=== PATIENT | female | born 1995 | race Caucasian/White ===

== ENCOUNTER 2017-05-12 20:36 | Emergency (ER) | payer SELFPAY ==
[~2017-05-12] VITALS: Ht 162.6 cm; Wt 88.5 kg
[~2017-05-12 20:36] MED LIST: BUPR300T43 PO; CEPH500C PO; DICY10CA26 PO; DICY10CA59 PO; DICY20TA57 PO; DIPH25TA82 PO; DIPH50CA PO; HYDR-1231 PO; HYDR-700 PO; HYDR50TA76 PO; MONONESSA PO; OMEG-12 PO; ONDA-42 SL; PRM25T PO; RANI150C11 PO; RANI75TA30 PO; RIVA15TA PO; RIVA20TA2 PO; RNT150T PO; TRAM50TA2 PO
--- OUTSIDE RECORDS SUMMARY | 2017-05-12 20:43 | XMS REPORT ---
Author Author DINO [facility] eClinicalWorks Address Unknown Phone Unavailable Care Team Providers Care Rubber Stamps And Dies Supervisor Name Role Phone [facility] CP Unavailable Allergies No Known Allergies Problems Problem Type Condition Code Onset Dates Condition Status Assessment Mood disorder F39 Active Medications Medication Code System Code Instructions Start Date End Date Status Dosage Latuda [facility] [address]-59 40 MG Orally Once a day 1 tablet with food Xanax [facility] [address]-41 0.5 MG Orally Twice a day 1 tablet Procedures Procedure Coding System Code Date Psychotherapy, patient &/family, 30 minutes, established patient CPT-4 40685 Jul 02, 2015 Results No Known Results Summary Purpose eClinicalWorks Submission
--- OUTSIDE RECORDS SUMMARY | 2017-05-12 20:43 | XMS REPORT ---
Author Author AFSANEH LOW Organization eClinicalWorks Address Unknown Phone Unavailable Care Team Providers Care Chip Bin Conveyor Tender Name Role Phone AFSANEH LOW CP Unavailable Allergies, Adverse Reactions, Alerts Substance Reaction Event Type Oral Contraceptives Hx of DVT and PE Non Drug Allergy Problems Problem Type Condition ICD-9 Code Onset Dates Condition Status Assessment Unspecified episodic mood disorder 296.90 Active Medications Medication Code System Code Instructions Start Date End Date Status Dosage Fish Oil [facility] [address]-03 1000 MG Orally Once a day 1 capsule Benadryl [facility] [address]-48 25 mg January 31, 2014 take 1 capsule (25 mg) by oral route 3 times per day PRN ProAir HFA [facility] [address]-15 90 mcg/actuation Jul 31, 2014 2 puffs by Inhalation route 4 times per day PRN Xanax [facility] [address]-96 0.5 MG Orally Twice a day May 28, 2015 1 tablet Naproxen [facility] [address]-32 500 MG Orally every 12 hrs 1 tablet as needed Latuda [facility] [address]-48 20 MG Orally Once a day May 28, 2015 1 tablet with food Procedures Procedure Coding System Code Date Office Visit, Est Pt., Level 5 CPT-4 58762 May 28, 2015 Vital Signs Date/Time: May 28, 2015 Temperature 98.0 F BMIPercentile 94.65 % Weight 185.5 lbs Height 64.8 in BMI 31.06 Index Blood Pressure Diastolic 75 mmHg Blood Pressure Systolic 110 mmHg Cardiac Monitoring Heart Rate 78 bpm Wt Percentile 95.6 % Ht Percentile 57.85 % Results No Known Results Summary Purpose eClinicalWorks Submission
--- OUTSIDE RECORDS SUMMARY | 2017-05-12 20:43 | XMS REPORT ---
Author Author ARMIN PEREZ Organization eClinicalWorks Address Unknown Phone Unavailable Care Team Providers Care Wireless Sales Consultant Name Role Phone ARMIN PEREZ CP Unavailable Allergies, Adverse Reactions, Alerts Substance Reaction Event Type Oral Contraceptives Hx of DVT and PE Non Drug Allergy Problems Problem Type Condition Code Onset Dates Condition Status Assessment Major depressive disorder, single episode, unspecified F32.9 Active Assessment Anxiety disorder, unspecified F41.9 Active Assessment Bipolar II disorder F31.81 Active Medications Medication Code System Code Instructions Start Date End Date Status Dosage Xanax [facility] [address]-30 0.5 MG Orally Twice a day 1 tablet Latuda [facility] [address]-81 40 MG Orally Once a day 1 tablet with food Procedures Procedure Coding System Code Date Medication Management CPT-4 32669 Aug 18, 2015 Vital Signs Date/Time: Aug 18, 2015 Cardiac Monitoring Heart Rate 80 bpm Weight 197.7 lbs Height 64.8 in Wt Percentile 97.16 % BMI 33.10 Index Blood Pressure Diastolic 90 mmHg Blood Pressure Systolic 110 mmHg BMIPercentile 96.09 % Results No Known Results Summary Purpose eClinicalWorks Submission
--- OUTSIDE RECORDS SUMMARY | 2017-05-12 20:43 | XMS REPORT ---
Author GAEL Ascencio Organization eClinicalWorks Address Unknown Phone Unavailable Care Team Providers Care Fishing Manager Name Role Phone GAEL OG CP Unavailable Allergies, Adverse Reactions, Alerts Substance Reaction Event Type Oral Contraceptives Hx of DVT and PE Non Drug Allergy Problems Problem Type Condition Code Onset Dates Condition Status Problem Anxiety F41.9 Active Problem History of hypoglycemia Z86.39 Active Problem Bipolar disorder, unspecified F31.9 Active Assessment Acute non-recurrent pansinusitis J01.40 Active Assessment Acute middle ear effusion, bilateral H65.193 Active Medications Medication Code System Code Instructions Start Date End Date Status Dosage Augmentin [facility] [address]-97 875-125 MG Orally every 12 hrs Jul 15, 2016 Jul 25, 2016 1 tablet PredniSONE [facility] [address]-19 20 MG Orally Once a day Jul 15, 2016 Jul 20, 2016 2 tablet Procedures Procedure Coding System Code Date Office Visit, Est Pt., Level 3 CPT-4 60159 Jul 15, 2016 Vital Signs Date/Time: Jul 15, 2016 Cardiac Monitoring Heart Rate 86 bpm Weight 185.4 lbs Height 64.8 in BMI 31.04 Index Blood Pressure Diastolic 64 mmHg Blood Pressure Systolic 102 mmHg Results No Known Results Summary Purpose eClinicalWorks Submission
--- OUTSIDE RECORDS SUMMARY | 2017-05-12 20:43 | XMS REPORT ---
Author Author DINO [facility] eClinicalWorks Address Unknown Phone Unavailable Care Team Providers Care Call Center Director Name Role Phone [facility] CP Unavailable Allergies No Known Allergies Problems Problem Type Condition ICD-9 Code Onset Dates Condition Status Assessment Bipolar II disorder 296.89 Active Medications No Known Medications Procedures Procedure Coding System Code Date Psych diagnostic evaluation, established patient CPT-4 05934 Apr 29, 2015 Results No Known Results Summary Purpose eClinicalWorks Submission
--- OUTSIDE RECORDS SUMMARY | 2017-05-12 20:43 | XMS REPORT ---
Author Author TED LEE Organization eClinicalWorks Address Unknown Phone Unavailable Care Team Providers Care Maintenance And Utilities Supervisor Name Role Phone TED LEE Unavailable Allergies No Known Allergies Problems Problem Type Condition Code Onset Dates Condition Status Problem Anxiety F41.9 Active Problem History of hypoglycemia Z86.39 Active Problem Bipolar 1 disorder F31.9 Active Medications No Known Medications Results No Known Results Summary Purpose eClinicalWorks Submission
--- OUTSIDE RECORDS SUMMARY | 2017-05-12 20:43 | XMS REPORT ---
Author Author GAEL OG Organization [facility] Address [address] [place] [address] Care Team Providers Care Thermoforming Machine Operator Name Role Phone GAEL OG Unavailable PROBLEMS Type Condition ICD9-CM Code [id number] Code Onset Dates Condition Status SNOMED Code Problem Seasonal allergic rhinitis, unspecified allergic rhinitis trigger J30.2 Active 943367784 Problem Bipolar disorder, unspecified F31.9 Active 64286187 Assessment Acute effusion of right ear H65.191 Aug, Active 78994422 Problem Anxiety F41.9 Active 96496264 Problem History of hypoglycemia Z86.39 Active 788508122 ALLERGIES Substance Reaction Event Type Date Status Oral Contraceptives Hx of DVT and PE Non Drug Allergy Aug, Active SOCIAL HISTORY No smoking Hx information available PLAN OF CARE VITAL SIGNS Height 64.8 in 2016-08-17 Weight 191.6 lbs 2016-08-17 Heart Rate 62 bpm 2016-08-17 Respiratory Rate 20 2016-08-17 BMI 32.08 kg/m2 2016-08-17 MEDICATIONS Medication Instructions Dosage Frequency Start Date End Date Duration Status PredniSONE 20 MG Orally Once a day 2 tablet 24h Aug, Aug, 5 days Active Effexor 50 MG Orally Twice a day 1 tablet with food 12h Active Zyrtec Allergy 10 MG Orally Once a day 1 tablet 24h Aug, Sep, 30 day(s) Active Fluticasone Propionate 50 MCG/ACT Nasally Twice a day 1-2 spray in each nostril 12h Aug, 30 day(s) Active HydrOXYzine HCl 10 MG Active RESULTS No Results PROCEDURES Procedure Date Ordered Related Diagnosis Body Site Office Visit, Est Pt., Level 3 Aug 17, 2016 IMMUNIZATIONS No Known Immunizations
--- OUTSIDE RECORDS SUMMARY | 2017-05-12 20:43 | XMS REPORT ---
Author Author ARMIN PEREZ Organization eClinicalWorks Address Unknown Phone Unavailable Care Team Providers Care Semiconductor Technician Name Role Phone ARMIN PEREZ CP Unavailable Allergies No Known Allergies Problems Problem Type Condition Code Onset Dates Condition Status Problem Anxiety F41.9 Active Problem History of hypoglycemia Z86.39 Active Problem Bipolar 1 disorder F31.9 Active Medications No Known Medications Results No Known Results Summary Purpose eClinicalWorks Submission
--- OUTSIDE RECORDS SUMMARY | 2017-05-12 20:43 | XMS REPORT ---
Author Author ARTURO OLIVIA [facility] eClinicalWorks Address Unknown Phone Unavailable Care Team Providers Care Global Category Manager Name Role Phone ARTURO OLIVIA Unavailable Allergies No Known Allergies Problems No Known Problems Medications No Known Medications Results No Known Results Summary Purpose eClinicalWorks Submission
--- OUTSIDE RECORDS SUMMARY | 2017-05-12 20:43 | XMS REPORT ---
Author Author AFSANEH LOW Organization eClinicalWorks Address Unknown Phone Unavailable Care Team Providers Care Naval Gunfire Liaison Officer Name Role Phone AFSANEH LOW CP Unavailable Allergies, Adverse Reactions, Alerts Substance Reaction Event Type Oral Contraceptives Hx of DVT and PE Non Drug Allergy Problems Problem Type Condition Code Onset Dates Condition Status Assessment Mood disorder F39 Active Medications Medication Code System Code Instructions Start Date End Date Status Dosage Xanax [facility] [address]-96 0.5 MG Orally Twice a day May 28, 2015 1 tablet ProAir HFA [facility] [address]-08 90 mcg/actuation Jul 31, 2014 2 puffs by Inhalation route 4 times per day PRN Benadryl [facility] [address]-28 25 mg January 31, 2014 take 1 capsule (25 mg) by oral route 3 times per day PRN Latuda [facility] [address]-39 40 MG Orally Once a day May 28, 2015 1 tablet with food Fish Oil [facility] [address]-99 1000 MG Orally Once a day 1 capsule Procedures Procedure Coding System Code Date Office Visit, Est Pt., Level 3 CPT-4 94114 Jul 02, 2015 Vital Signs Date/Time: Jul 02, 2015 Cardiac Monitoring Heart Rate 84 bpm Weight 190.9 lbs Height 64.8 in Wt Percentile 96.39 % BMI 31.96 Index Blood Pressure Diastolic 60 mmHg Blood Pressure Systolic 112 mmHg BMIPercentile 95.39 % Results No Known Results Summary Purpose eClinicalWorks Submission
--- OUTSIDE RECORDS SUMMARY | 2017-05-12 20:43 | XMS REPORT ---
Author Author ARMIN PEREZ Organization eClinicalWorks Address Unknown Phone Unavailable Care Team Providers Care Disintegrator Operator Name Role Phone ARMIN PEREZ CP Unavailable Allergies No Known Allergies Problems Problem Type Condition Code Onset Dates Condition Status Problem Anxiety F41.9 Active Problem History of hypoglycemia Z86.39 Active Problem Bipolar 1 disorder F31.9 Active Medications No Known Medications Results No Known Results Summary Purpose eClinicalWorks Submission
--- OUTSIDE RECORDS SUMMARY | 2017-05-12 20:43 | XMS REPORT ---
Author ARTURO [facility] eClinicalWorks Address Unknown Phone Unavailable Care Team Providers Care Vitreo Retinal Surgeon Name Role Phone ARTURO OLIVIA CP Unavailable Allergies, Adverse Reactions, Alerts Substance Reaction Event Type Oral Contraceptives Hx of DVT and PE Non Drug Allergy Problems Problem Type Condition Code Onset Dates Condition Status Problem Anxiety F41.9 Active Problem History of hypoglycemia Z86.39 Active Problem Bipolar 1 disorder F31.9 Active Assessment Bipolar 1 disorder F31.9 Active Assessment History of hypoglycemia Z86.39 Active Medications Medication Code System Code Instructions Start Date End Date Status Dosage Latuda [facility] [address]-91 40 MG Orally Once a day 1 tablet with food Xanax [facility] [address]-73 0.5 MG Orally Twice a day 1 tablet Procedures Procedure Coding System Code Date Office Visit, Est Pt., Level 4 CPT-4 31879 Aug 25, 2015 Vital Signs Date/Time: Aug 25, 2015 Temperature 98.4 F Weight 198.0 lbs Height 64.8 in BMI 33.15 Index Blood Pressure Diastolic 74 mmHg Blood Pressure Systolic 105 mmHg Cardiac Monitoring Heart Rate 76 bpm BMIPercentile 96.12 % Wt Percentile 97.19 % Results No Known Results Summary Purpose eClinicalWorks Submission
--- OUTSIDE RECORDS SUMMARY | 2017-05-12 20:44 | XMS REPORT ---
Author Author ARMIN PEREZ Organization eClinicalWorks Address Unknown Phone Unavailable Care Team Providers Care Slug Press Operator Name Role Phone ARMIN PEREZ CP Unavailable Allergies, Adverse Reactions, Alerts Substance Reaction Event Type Oral Contraceptives Hx of DVT and PE Non Drug Allergy Problems Problem Type Condition Code Onset Dates Condition Status Problem Anxiety F41.9 Active Problem History of hypoglycemia Z86.39 Active Problem Bipolar 1 disorder F31.9 Active Assessment Anxiety disorder, unspecified F41.9 Active Assessment Bipolar II disorder F31.81 Active Assessment Major depressive disorder, single episode, unspecified F32.9 Active Medications Medication Code System Code Instructions Start Date End Date Status Dosage Pristiq [facility] [address]-11 50 mg Orally Once a day Sep 23, [address] [facility] [address]-08 0.5 MG Orally Twice a day 1 tablet Procedures Procedure Coding System Code Date Office Visit, Est Pt., Level 4 CPT-4 19977 Sep 23, 2015 Vital Signs Date/Time: Sep 23, 2015 Cardiac Monitoring Heart Rate 88 bpm Weight 195.0 lbs Height 64.8 in Wt Percentile 96.86 % BMI 32.65 Index Blood Pressure Diastolic 84 mmHg Blood Pressure Systolic 124 mmHg BMIPercentile 95.75 % Results No Known Results Summary Purpose eClinicalWorks Submission
--- OUTSIDE RECORDS SUMMARY | 2017-05-12 20:44 | XMS REPORT ---
Author TED Gutierrez [facility] eClinicalWorks Address Unknown Phone Unavailable Care Team Providers Care Sterile Preparation Technician Name Role Phone TED LEE CP Unavailable Allergies, Adverse Reactions, Alerts Substance Reaction Event Type Oral Contraceptives Hx of DVT and PE Non Drug Allergy Problems Problem Type Condition Code Onset Dates Condition Status Problem Anxiety F41.9 Active Problem History of hypoglycemia Z86.39 Active Problem Bipolar 1 disorder F31.9 Active Assessment Anxiety F41.9 Active Assessment Cough R05 Active Medications Medication Code System Code Instructions Start Date End Date Status Dosage Xanax [facility] [address]-84 0.5 MG Orally Twice a day 1 tablet Pristiq [facility] [address]-51 100 MG Orally Once a day Sep 23, 2015 1 tablet Promethazine-Codeine [facility] [address]-91 6.25-10 MG/5ML Orally every 6 hrs December 27, 2015 10 ml as needed Procedures Procedure Coding System Code Date Office Visit, Est Pt., Level 2 CPT-4 76717 December 27, 2015 Vital Signs Date/Time: December 27, 2015 Temperature 98.7 F Weight 187.5 lbs Height 64.8 in BMI 31.39 Index Blood Pressure Diastolic 70 mmHg Blood Pressure Systolic 110 mmHg Cardiac Monitoring Heart Rate 116 bpm Results No Known Results Summary Purpose eClinicalWorks Submission
--- OUTSIDE RECORDS SUMMARY | 2017-05-12 20:44 | XMS REPORT ---
Author Author NIC CROWE Organization eClinicalWorks Address Unknown Phone Unavailable Care Team Providers Care Breaker Operator Name Role Phone NIC CROWE CP Unavailable Allergies, Adverse Reactions, Alerts Substance Reaction Event Type Oral Contraceptives Hx of DVT and PE Non Drug Allergy Problems Problem Type Condition Code Onset Dates Condition Status Problem Anxiety F41.9 Active Problem History of hypoglycemia Z86.39 Active Problem Bipolar disorder, unspecified F31.9 Active Assessment Bipolar disorder, unspecified F31.9 Active Medications Medication Code System Code Instructions Start Date End Date Status Dosage Vistaril [facility] [address]-88 25 MG Orally twice a day Apr 28, 2016 1 capsule as needed BusPIRone HCl [facility] [address]-73 5 MG Orally Three times a day Apr 28, 2016 1 tablet Venlafaxine HCl [facility] [address]-22 75 MG Orally Twice a day Apr 28, 2016 1 tablet with food Procedures Procedure Coding System Code Date URINE TEST CPT-4 60432 Apr 28, 2016 Office Visit, Est Pt., Level 3 CPT-4 47105 Apr 28, 2016 DRUG SCREEN NON TLC DEVICES CPT-4 32997 Apr 28, 2016 Vital Signs Date/Time: Apr 28, 2016 Cardiac Monitoring Heart Rate 96 bpm Weight 188.2 lbs Height 64.8 in BMI 31.51 Index Blood Pressure Diastolic 76 mmHg Blood Pressure Systolic 108 mmHg Results No Known Results Summary Purpose eClinicalWorks Submission
--- OUTSIDE RECORDS SUMMARY | 2017-05-12 20:44 | XMS REPORT ---
Author Author ARTURO OLIVIA [facility] eClinicalWorks Address Unknown Phone Unavailable Care Team Providers Care Supervisor Inventory Merchandising Name Role Phone ARTURO OLIVIA Unavailable Allergies No Known Allergies Problems No Known Problems Medications No Known Medications Results No Known Results Summary Purpose eClinicalWorks Submission
--- OUTSIDE RECORDS SUMMARY | 2017-05-12 20:44 | XMS REPORT ---
Author Author NIC CROWE Organization [facility] Address [address] [place] [address] Care Team Providers Care Automotive General Manager Name Role Phone SEBASTIEN, NIC Unavailable PROBLEMS Type Condition ICD9-CM Code [id number] Code Onset Dates Condition Status SNOMED Code Problem Bipolar disorder, unspecified F31.9 Active 89789307 Problem Anxiety F41.9 Active 02928926 Problem History of hypoglycemia Z86.39 Active 375099651 Assessment Bipolar disorder, unspecified F31.9 May, Active 15692118 ALLERGIES Unknown Allergies SOCIAL HISTORY No smoking Hx information available PLAN OF CARE VITAL SIGNS Height 64.8 in 2016-05-19 Weight 186.7 lbs 2016-05-19 Heart Rate 88 bpm 2016-05-19 Respiratory Rate 22 2016-05-19 BMI 31.26 kg/m2 2016-05-19 Blood pressure systolic 106 mmHg 2016-05-19 Blood pressure diastolic 60 mmHg 2016-05-19 MEDICATIONS Medication Instructions Dosage Frequency Start Date End Date Duration Status Venlafaxine HCl 100 MG Orally Twice a day 1 tablet 12h Active BusPIRone HCl 5 mg Orally Three times a day 1 tablet 8h Active Vistaril 25 MG Orally 3 times a day 1 capsule as needed 8h Active RESULTS No Results PROCEDURES Procedure Date Ordered Related Diagnosis Body Site MH Office Visit, Est Pt., Level 2 May 19, 2016 IMMUNIZATIONS No Known Immunizations
--- NOTE | 2017-05-12 21:00 | ED Cough/URI ---
General Chief Complaint: Cough/Cold/Flu Symptoms Stated Complaint: COUGH/CONGESTION SORE THROAT Source: patient Exam Limitations: no limitations History of Present Illness Time seen by provider: 20:52 Initial Comments Patient presents to ER with a primary complaint of dry and sometimes productive cough chills and feeling under the weather for the past 2 days. Has a history of asthma but does not have any inhalers for. She's had them prescribed but no hemoptysis have insurance or money for him. She is not complaining of any wheezing or shortness of breath. She's not had any objective fevers. Says she has to work tonight is not sure she can make it through the shift. Smokes about half pack a day. Allergies and Home Medications Allergies Coded Allergies: No Known Drug Allergies (Unverified , 06/19/13) Home Medications Bupropion HCl 300 Mg Tab.er.24h, 300 MG PO DAILY, (Reported) Cephalexin Monohydrate 500 Mg Capsule, 1 EACH PO QID, #28 Prescribed by: BRANDON BAUMAN on 10/22/14 0050 Dicyclomine HCl 10 Mg Capsule, 10 MG PO TID, (Reported) Hydroxyzine Hcl 50 Mg Tablet, 1 EACH PO QID, (Reported) Cosmos-3/Dha/Epa/Fish Oil 1 Each Capsule.dr, 1,000 MG PO DAILY, (Reported) Ranitidine Hcl 150 Mg Capsule, 150 MG PO DAILY, (Reported) Constitutional: chills, No diaphoresis, No fever, malaise EENTM: nose congestion, No ear discharge, No ear pain, No eye pain, No nose pain Respiratory: see HPI, cough, No hemoptysis, No phlegm, No short of breath, No wheezing Cardiovascular: No chest pain, No palpitations Gastrointestinal: No constipation, No diarrhea, No nausea Skin: No pruritus, No rash Past Lossauq-Tzkcjo-Anwvap Hx Patient Social History Alcohol Use: Occasionally Uses Recreational Drug Use: No Smoking Status: Never a Smoker 2nd Hand Smoke Exposure: No Recent Foreign Travel: No Contact w/Someone Who Travel: No Immunizations Up To Date Tetanus Booster (TDap): Unknown PED Vaccines UTD: Yes Respiratory Respiratory Disorders: Asthma, Pulmonary Embolism Cardiovascular Cardiac Disorders: High Cholesterol Reproductive System Sexually Transmitted Disease: Yes (TRICH, CHLAMYDIA) ALTERATION TAILOR History: IUD Gastrointestinal Gastrointestinal Disorders: Gastroesophageal Reflux, Irritable Bowel Musculoskeletal Musculoskeletal Disorders: Fractures HEENT HEENT Disorders: Tonsilitis Psychosocial Behavioral Health Disorders: Anxiety, Depression Blood Transfusions Adverse Reaction to a Blood Tr: No Family Medical History Significant Family History: Asthma, Cancer, DVT/PE, Hypertension, Psychiatric Problems Physical Exam Vital Signs Vital Sign - Last 12Hours 05/12/17 20:52 Temp 97.6 Pulse 79 Resp 20 B/P (MAP) 128/76 Pulse Ox 98 O2 Delivery Room Air Capillary Refill : General Appearance: WD/WN, no apparent distress Eyes: Bilateral Eye Normal Inspection, Bilateral Eye PERRL, Bilateral Eye EOMI HEENT: PERRL/EOMI, normal ENT inspection, TMs normal, pharyngeal erythema ( enlargement of tonsils) Neck: non-tender, full range of motion, supple, normal inspection Respiratory: chest non-tender, lungs clear, normal breath sounds, no respiratory distress Cardiovascular: normal peripheral pulses, regular rate, rhythm, no edema Extremities: normal inspection, normal capillary refill Neurologic/Psychiatric: alert, oriented x 3 Skin: normal color, warm/dry Progress/Results/Core Measures Results/Orders Lab Results Laboratory Tests Test 05/12/17 20:55 Range/Units Group A Streptococcus Screen NEGATIVE NEGATIVE My Orders Orders - BENEDICT ASH Rapid Strep A Screen (05/12/17 20:55) Vital Signs/I&O Vital Sign - Last 12Hours 05/12/17 20:52 Temp 97.6 Pulse 79 Resp 20 B/P (MAP) 128/76 Pulse Ox 98 O2 Delivery Room Air Departure Impression Impression: Primary Impression: Pharyngitis Qualified Codes: J02.9 - Acute pharyngitis, unspecified Disposition: 01 HOME, SELF-CARE Condition: Stable Departure-Patient Inst. Decision time for Depature: 21:32 Referrals: [facility] (PCP/Family) Primary Care Physician Patient Instructions: Viral Upper Respiratory Infection, Adult (DC) Add. Discharge Instructions: Drink plenty of fluids and use vapor rubs, humidifiers and Tylenol Motrin. If you have a sore throat you can take salt water gargle for as long as you can hold every 4-6 hours. All discharge instructions reviewed with patient and/or family. Voiced understanding. Work/School Note: Work Release Form Date Seen in the Emergency Department: May 12, 2017 Return to Work: May 13, 2017 Restrictions: No Restrictions Copy Copies To 1: JULIAN MARKHAM TITUS J May 12, 2017 20:59
[2017-05-12 21:39] VITALS: BP 115/85
== END 2017-05-12 21:35 | disposition home or self-care (01) ==
LOC: EDUNIT# 20:36 → ER 20:39
DX: J02.9 Acute pharyngitis, unspecified (principal); J45.909 Unspecified asthma, uncomplicated; F41.9 Anxiety disorder, unspecified; F32.9 Major depressive disorder, single episode, unspecified; K21.9 Gastro-esophageal reflux disease without esophagitis; E78.00 Pure hypercholesterolemia, unspecified; Z86.711 Personal history of pulmonary embolism; Z87.09 Personal history of other diseases of the respiratory system; Z97.5 Presence of (intrauterine) contraceptive device; Z80.9 Family history of malignant neoplasm, unspecified; Z87.19 Personal history of other diseases of the digestive system; Z87.81 Personal history of (healed) traumatic fracture
CPT/HCPCS: 87430; 99282

== ENCOUNTER → 2023-05-04 | Outpatient (CLI) | payer OTHER | LOC: CARD 08:00 | PROVIDERS: ATTEND Physician Assistant | DX: R55 Syncope and collapse (principal); F41.9 Anxiety disorder, unspecified; Z86.718 Personal history of other venous thrombosis and embolism; Z86.711 Personal history of pulmonary embolism; Z72.0 Tobacco use | CPT/HCPCS: 93246 ==

== ENCOUNTER → 2023-06-25 | Outpatient (CLI) | payer OTHER ==
[2023-06-25 10:22] VITALS: BP 159/51
--- NOTE | 2023-06-25 12:32 | Cardiology Stress Test Report ---
Stress Test Report Date of Procedure/Referring: Date of Procedure: Jun 25, 2023 PCP Autumn Cohen Aprn Admitting Physician Admitting Physician: Attending Physician: Tash Anne Baseline Heart Rate: 66 Baseline Blood Pressure: Blood Pressure Systolic: 159 Blood Pressure Diastolic: 51 Baseline EKG: Baseline EKG: NSR Summary/Conclusion: Summary: In summary, the patient started exercising with a baseline heart rate, blood pressure and EKG mentioned above Patient was able to exercise for a total of 7.30 minutes on Robb protocol, METs 9.1 Maximum heart rate 166 Maximum blood pressure 150/72 Stress EKG, Minimal nondiagnostic changes Recovery EKG , Return to baseline Conclusion: 1. Good exercise tolerance for a total of 7.30 minutes on Robb protocol, 9.1 METs, achieving 86 percent of maximum expected heart rate 2. Minimal nondiagnostic EKG changes with exercise returned to baseline during recovery 3. Occasional PVCs noted during recovery otherwise no arrhythmia detected GERALD ROMO MD Jun 25, 2023 12:32
== END ==
LOC: CANPRECLI → CARD 10:01
PROVIDERS: ATTEND Physician Assistant
DX: R55 Syncope and collapse (principal)
CPT/HCPCS: 93017; C8929; 93306